=== PATIENT | male | born 1980 | race Two or more races ===

== ENCOUNTER 2016-07-03 15:43 | Emergency (ER) | payer MEDICAID ==
[~2016-07-03] VITALS: Ht 170.2 cm; Wt 91.2 kg
[~2016-07-03 15:43] MED LIST: AMOX-291 PO; CLAR500T PO; INSU100I18 SQ-INSULIN; INSU100I28 SQ-INSULIN; LOVA40TA2 PO; OMEP-110 PO; POTA20TA14 PO
[2016-07-03 16:56] LABS: ASPARTATE AMINO TRANSFERASE 13 U/L (15-37); BLOOD UREA NITROGEN 12 mg/dL (7-18)
[2016-07-03] MEDS ORDERED: SODIUM CHLORIDE 0.9% 1,000ML IVBOLUS ONE (17:00)
[2016-07-03 17:03] LABS: IS PT STATUS REG ER OR PRE ER? YES
[2016-07-03 18:55] VITALS: BP 110/74
== END 2016-07-03 19:26 | disposition home or self-care (01) ==
LOC: ED 19:20
DX: E11.40 Type 2 diabetes mellitus with diabetic neuropathy, unspecified (principal); R07.89 Other chest pain
CPT/HCPCS: 36415; 70450; 71010; 80053; 84484; 85025; 85610; 85730; 93005; 96360; 96361; 99285; J7030

== ENCOUNTER 2016-11-20 11:52 | Emergency (ER) | payer MEDICAID ==
[~2016-11-20] VITALS: Ht 170.2 cm; Wt 96.3 kg
[2016-11-20 11:57] VITALS: BP 132/87
== END 2016-11-20 13:39 | disposition home or self-care (01) ==
LOC: ED 13:05
DX: J02.8 Acute pharyngitis due to other specified organisms (principal); R06.00 Dyspnea, unspecified; I10 Essential (primary) hypertension; E11.40 Type 2 diabetes mellitus with diabetic neuropathy, unspecified; Z87.891 Personal history of nicotine dependence
CPT/HCPCS: 71020; 93005; 99284

== ENCOUNTER 2017-06-27 20:59 | Emergency (ER) | payer OTHER ==
[~2017-06-27] VITALS: Ht 167.6 cm; Wt 98.0 kg
[2017-06-27 21:44] LABS: MICROSCOPIC NOT IND
[2017-06-27] MEDS ORDERED: DICYCLOMINE 20 MG TABLET ONE (22:51)
[2017-06-27] MEDS ORDERED: DICYCLOMINE 20 MG TABLET PO ONE (23:00)
[2017-06-27 23:43] LABS: BASOPHILS # (AUTO) 0.05 x10^3/uL (0-0.1); BASOPHILS % (AUTO) 1 % (0-1); EOSINOPHILS # (AUTO) 0.16 x10^3/uL (0-0.4); EOSINOPHILS % (AUTO) 2 % (1-7); LYMPHOCYTES # (AUTO) 3.58 x10^3/uL (1-3.4); LYMPHOCYTES % (AUTO) 40 % (22-44); MD NO; MEAN CORPUSCULAR HEMOGLOBIN 30.1 pg (27.5-34.5); MEAN CORPUSCULAR HGB CONC 33.9 g/dL (33.2-36.2); MEAN CORPUSCULAR VOLUME 88.8 fL (81-97); MEAN PLATELET VOLUME 8.8 fL (7.4-10.4); MONOCYTES # (AUTO) 0.84 x10^3/uL (0.2-0.8); MONOCYTES % (AUTO) 9 % (2-9); NEUTROPHILS % (AUTO) 48 % (42-75); PLATELET COUNT 270 x10^3/uL (130-400); RED BLOOD COUNT 5.08 x10^6/uL (4.38-5.82); RED CELL DISTRIBUTION WIDTH 13.3 % (9.4-14.8)
[2017-06-27 23:48] LABS: ALANINE AMINOTRANSFERASE 32 U/L (12-78); ALBUMIN 3.8 g/dL (3.4-5.0); ANION GAP 9 mmol/L (5-15); CALCIUM 9.2 mg/dL (8.5-10.1); CHLORIDE 105 mmol/L (98-107); CREATININE 0.83 mg/dL (0.7-1.3)
[2017-06-27 23:49] VITALS: BP 127/82
[2017-06-27 23:50] LABS: ALKALINE PHOSPHATASE 75 U/L (45-117); BILIRUBIN,TOTAL 0.3 mg/dL (0.2-1.0); TOTAL PROTEIN 7.1 g/dL (6.4-8.2)
== END 2017-06-28 01:11 | disposition home or self-care (01) ==
LOC: ED 22:37
DX: R10.32 Left lower quadrant pain (principal); M54.5 Low back pain; I10 Essential (primary) hypertension; E11.9 Type 2 diabetes mellitus without complications
CPT/HCPCS: 36415; 74021; 74176; 80053; 81003; 83690; 85025; 99285

== ENCOUNTER 2017-10-31 14:22 | Emergency (ER) | payer OTHER ==
[~2017-10-31] VITALS: Ht 167.6 cm; Wt 93.3 kg
[2017-10-31 14:29] VITALS: BP 128/84
[2017-10-31] MEDS ORDERED: METF500T17 PO (14:58)
[2017-10-31] MEDS ORDERED: LISI2.5T PO (14:58)
[2017-10-31 15:17] LABS: MICROSCOPIC NOT IND
[2017-10-31 15:17] LABS: BASOPHILS # (AUTO) 0.04 x10^3/uL (0-0.1); BASOPHILS % (AUTO) 1 % (0-1); EOSINOPHILS # (AUTO) 0.12 x10^3/uL (0-0.4); EOSINOPHILS % (AUTO) 2 % (1-7); LYMPHOCYTES # (AUTO) 2.63 x10^3/uL (1-3.4); LYMPHOCYTES % (AUTO) 36 % (22-44); MD NO; MEAN CORPUSCULAR HEMOGLOBIN 29.7 pg (27.5-34.5); MEAN CORPUSCULAR HGB CONC 33.1 g/dL (33.2-36.2); MEAN CORPUSCULAR VOLUME 89.9 fL (81-97); MEAN PLATELET VOLUME 8.6 fL (7.4-10.4); MONOCYTES # (AUTO) 0.55 x10^3/uL (0.2-0.8); MONOCYTES % (AUTO) 8 % (2-9); NEUTROPHILS % (AUTO) 55 % (42-75); PLATELET COUNT 263 x10^3/uL (130-400); RED BLOOD COUNT 4.81 x10^6/uL (4.38-5.82); RED CELL DISTRIBUTION WIDTH 13.3 % (9.4-14.8)
[2017-10-31 15:26] LABS: ALANINE AMINOTRANSFERASE 30 U/L (12-78); ANION GAP 8 mmol/L (5-15); CALCIUM 8.4 mg/dL (8.5-10.1); CHLORIDE 109 mmol/L (98-107)
[2017-10-31 15:29] LABS: ALKALINE PHOSPHATASE 75 U/L (45-117); BILIRUBIN,TOTAL 0.4 mg/dL (0.2-1.0); TOTAL PROTEIN 7.3 g/dL (6.4-8.2)
[2017-10-31 15:31] LABS: CULTURE INDICATED? NO
== END 2017-10-31 16:00 | disposition home or self-care (01) ==
LOC: ED 15:14
DX: S39.012A Strain of muscle, fascia and tendon of lower back, initial encounter (principal); E11.9 Type 2 diabetes mellitus without complications; I10 Essential (primary) hypertension; X58.XXXA Exposure to other specified factors, initial encounter; Y93.89 Activity, other specified; Y92.89 Other specified places as the place of occurrence of the external cause; Y99.8 Other external cause status
CPT/HCPCS: 36415; 80053; 81003; 82962; 85025; 99284